=== PATIENT | male | born 1965 | race Caucasian/White ===

== ENCOUNTER 2018-05-04 14:14 | Inpatient (IN) | payer MEDICAID ==
[2018-05-04 14:56] LABS: ADD MAN DIFF? NO
[2018-05-04 15:01] LABS: BASOPHIL # 0.1 10^3/ul (0.0-0.1); BASOPHILS % 0.6 % (0.0-2.0); EOSINOPHILS # 0.2 10^3/ul (0.0-0.5); EOSINOPHILS % 1.4 % (0.0-7.0); HEMATOCRIT 41.2 % (42.0-52.0); HEMOGLOBIN 14.1 g/dl (14.0-18.0); LYMPHOCYTES # 1.8 10^3/ul (0.8-2.9); LYMPHOCYTES % 16.5 % (15.0-51.0); MEAN CORPUSCULAR HEMOGLOBIN 31.8 pg (29.0-33.0); MEAN CORPUSCULAR HGB CONC 34.2 g/dl (32.0-37.0); MEAN CORPUSCULAR VOLUME 92.8 fl (82.0-101.0); MEAN PLATELET VOLUME 8.4 fl (7.4-10.4); MONOCYTE # 1.2 10^3/ul (0.3-0.9); MONOCYTES % 10.8 % (0.0-11.0); NEUTROPHIL # 7.6 10^3/ul (1.6-7.5); NEUTROPHILS % 70.4 % (39.0-77.0); PLATELET COUNT 316 10^3/UL (140-415); RED BLOOD COUNT 4.44 10^6/ul (4.70-6.10); RED CELL DISTRIBUTION WIDTH 11.9 % (11.5-14.5)
[2018-05-04 15:01] LABS: WHITE BLOOD COUNT 10.8 10^3/ul (4.8-10.8)
[2018-05-04 15:23] LABS: ANION GAP 12 (5-13); BLOOD UREA NITROGEN 10 mg/dl (7-20); CALCIUM 9.7 mg/dl (8.4-10.2); CARBON DIOXIDE 31 mmol/L (21-31); CHLORIDE 96 mmol/L (97-110); CREATININE 0.77 mg/dl (0.61-1.24); Estimated GFR > 60 mL/min (>60); GLUCOSE 109 mg/dl (70-220); POTASSIUM 4.5 mmol/L (3.5-5.1); SODIUM 139 mmol/L (135-144)
[2018-05-04] MEDS ORDERED: ONDANSETRON 4 MG INJ IV ×2 (16:30→19:00)
[2018-05-04] MEDS ORDERED: ACETAMINOPHEN 325 MG TAB PO ×2 (16:30→19:00)
[2018-05-04] MEDS: SOD CHLORIDE 0.9% 1,000 ML IV (18:36)
[2018-05-04] MEDS: HEPARIN 1000 UNITS/ML 10 ML INJ IV (18:59)
[2018-05-04] MEDS ORDERED: NITROGLYCERIN (SL) 0.4 MG TAB SL (19:00)
[2018-05-04] MEDS ORDERED: morphine 4 MG/ML VIAL IV (19:00)
[2018-05-04] MEDS ORDERED: HYDROCODONE/APAP (5/325) TAB PO (19:00)
[2018-05-04] MEDS ORDERED: ZOLPIDEM 5 MG TAB PO (19:00)
[2018-05-04] MEDS ORDERED: NACL 0.9% 3 ML SYG IV (19:00)
[2018-05-04] MEDS ORDERED: DOCUSATE SODIUM 100 MG CAP PO (19:00)
[2018-05-04] MEDS: HEPARIN 25000 UNITS/250 ML 250 ML IV (19:01)
[2018-05-04 19:20] LABS: INR 0.92; PROTIME 12.5 Sec (11.9-14.9)
[2018-05-04 19:21] LABS: PARTIAL THROMBOPLASTIN TIME 38.5 Sec (23.0-35.0)
[2018-05-04] MEDS: METOPROLOL 25 MG TAB PO (21:55)
[2018-05-04] MEDS: ATORVASTATIN 80 MG TAB PO (21:55)
[2018-05-04] MEDS: ZOLPIDEM 5 MG TAB PO (21:57)
[2018-05-04 23:06] LABS: CREATINE KINASE 253 IU/L (23-200)
[2018-05-04 23:18] LABS: CK INDEX 3.6
[2018-05-04 23:20] LABS: CK-MB 9.06 ng/ml (0.0-2.4)
[2018-05-05 01:14] LABS: PARTIAL THROMBOPLASTIN TIME 59.3 Sec (23.0-35.0)
[2018-05-05 03:08] LABS: CREATINE KINASE 193 IU/L (23-200)
[2018-05-05 03:21] LABS: CK INDEX 3.5
[2018-05-05 03:35] LABS: CK-MB 6.82 ng/ml (0.0-2.4)
[2018-05-05 07:08] LABS: ADD MAN DIFF? NO
[2018-05-05] MEDS: SOD CHLORIDE 0.9% 1,000 ML IV ×2 (07:12→18:17)
[2018-05-05 07:19] LABS: BASOPHIL # 0.1 10^3/ul (0.0-0.1); BASOPHILS % 0.8 % (0.0-2.0); EOSINOPHILS # 0.3 10^3/ul (0.0-0.5); EOSINOPHILS % 2.7 % (0.0-7.0); LYMPHOCYTES # 2.1 10^3/ul (0.8-2.9); LYMPHOCYTES % 22.8 % (15.0-51.0); MEAN CORPUSCULAR HEMOGLOBIN 31.3 pg (29.0-33.0); MEAN CORPUSCULAR HGB CONC 34.1 g/dl (32.0-37.0); MEAN CORPUSCULAR VOLUME 91.7 fl (82.0-101.0); MEAN PLATELET VOLUME 8.6 fl (7.4-10.4); MONOCYTES % 10.3 % (0.0-11.0); NEUTROPHIL # 5.8 10^3/ul (1.6-7.5); NEUTROPHILS % 62.9 % (39.0-77.0); PLATELET COUNT 283 10^3/UL (140-415); RED BLOOD COUNT 4.47 10^6/ul (4.70-6.10); RED CELL DISTRIBUTION WIDTH 11.9 % (11.5-14.5)
[2018-05-05 07:19] LABS: WHITE BLOOD COUNT 9.2 10^3/ul (4.8-10.8)
[2018-05-05 07:33] LABS: PARTIAL THROMBOPLASTIN TIME 49.4 Sec (23.0-35.0)
[2018-05-05 07:42] LABS: ANION GAP 10 (5-13); BLOOD UREA NITROGEN 11 mg/dl (7-20); CALCIUM 9.3 mg/dl (8.4-10.2); CARBON DIOXIDE 28 mmol/L (21-31); CHLORIDE 104 mmol/L (97-110); CHOL/HDL RATIO 4.3 RATIO; CHOLESTEROL 188 mg/dl (100-200); CREATININE 0.73 mg/dl (0.61-1.24); Estimated GFR > 60 mL/min (>60); GLUCOSE 107 mg/dl (70-220); HDL CHOLESTEROL 43 mg/dl (28-71); LDL CHOLESTEROL,CALCULATED 103 mg/dl; MAGNESIUM 2.2 mg/dl (1.7-2.5); PHOSPHORUS 4.6 mg/dl (2.5-4.9); POTASSIUM 4.2 mmol/L (3.5-5.1); SODIUM 142 mmol/L (135-144); TRIGLYCERIDES 208 mg/dl (0-149)
[2018-05-05 07:47] LABS: HEMOGLOBIN A1C 5.5 % (0-5.9)
[2018-05-05] MEDS: HEPARIN 25000 UNITS/250 ML 250 ML IV ×3 (07:56→15:33)
[2018-05-05] MEDS: METOPROLOL 25 MG TAB PO ×2 (08:51→20:50)
[2018-05-05 14:00] LABS: PARTIAL THROMBOPLASTIN TIME 45.5 Sec (23.0-35.0)
[2018-05-05 14:39] LABS: CREATINE KINASE 138 IU/L (23-200)
[2018-05-05 14:46] LABS: CK INDEX 3.1
[2018-05-05 14:51] LABS: CK-MB 4.24 ng/ml (0.0-2.4)
[2018-05-05] MEDS: HEPARIN 1000 UNITS/ML 10 ML INJ IV (14:55)
[2018-05-05 19:34] LABS: PARTIAL THROMBOPLASTIN TIME 122.5 Sec (23.0-35.0)
[2018-05-05] MEDS: ATORVASTATIN 80 MG TAB PO (20:50)
[2018-05-05] MEDS: ZOLPIDEM 5 MG TAB PO (22:29)
[2018-05-06 04:15] LABS: ADD MAN DIFF? NO
[2018-05-06 04:22] LABS: WHITE BLOOD COUNT 7.8 10^3/ul (4.8-10.8)
[2018-05-06 04:22] LABS: BASOPHIL # 0.1 10^3/ul (0.0-0.1); BASOPHILS % 0.6 % (0.0-2.0); EOSINOPHILS # 0.3 10^3/ul (0.0-0.5); EOSINOPHILS % 3.2 % (0.0-7.0); HEMATOCRIT 38.6 % (42.0-52.0); HEMOGLOBIN 13.3 g/dl (14.0-18.0); LYMPHOCYTES # 1.9 10^3/ul (0.8-2.9); MEAN CORPUSCULAR HEMOGLOBIN 31.7 pg (29.0-33.0); MEAN CORPUSCULAR HGB CONC 34.5 g/dl (32.0-37.0); MEAN CORPUSCULAR VOLUME 91.9 fl (82.0-101.0); MEAN PLATELET VOLUME 8.7 fl (7.4-10.4); MONOCYTE # 0.8 10^3/ul (0.3-0.9); MONOCYTES % 10.3 % (0.0-11.0); NEUTROPHIL # 4.7 10^3/ul (1.6-7.5); NEUTROPHILS % 60.5 % (39.0-77.0); PLATELET COUNT 269 10^3/UL (140-415); RED CELL DISTRIBUTION WIDTH 11.9 % (11.5-14.5)
[2018-05-06 04:46] LABS: ANION GAP 6 (5-13); BLOOD UREA NITROGEN 11 mg/dl (7-20); CALCIUM 9.2 mg/dl (8.4-10.2); CARBON DIOXIDE 26 mmol/L (21-31); CHLORIDE 109 mmol/L (97-110); CHOLESTEROL 164 mg/dl (100-200); CREATINE KINASE 86 IU/L (23-200); CREATININE 0.72 mg/dl (0.61-1.24); Estimated GFR > 60 mL/min (>60); GLUCOSE 115 mg/dl (70-220); POTASSIUM 3.7 mmol/L (3.5-5.1); SODIUM 141 mmol/L (135-144); TRIGLYCERIDES 210 mg/dl (0-149)
[2018-05-06 04:50] LABS: PARTIAL THROMBOPLASTIN TIME 52.6 Sec (23.0-35.0)
[2018-05-06 04:52] LABS: INR 0.88; PT RATIO 0.9
[2018-05-06 04:58] LABS: CK INDEX 1.6
[2018-05-06] MEDS: SOD CHLORIDE 0.9% 1,000 ML IV ×2 (06:14→14:22)
[2018-05-06] MEDS: DIAZEPAM 5 MG TAB PO (08:00)
[2018-05-06] MEDS: DIPHENHYDRAMINE 50 MG CAP PO (08:00)
[2018-05-06] MEDS: ASPIRIN 325 MG TAB PO (09:18)
[2018-05-06] MEDS: METOPROLOL 25 MG TAB PO ×2 (09:18→20:13)
[2018-05-06] MEDS ORDERED: NITROGLYCERIN (IC) 100 MCG/ML INJ (12:00)
[2018-05-06] MEDS ORDERED: VERAPAMIL 5 MG INJ (12:00)
[2018-05-06] MEDS ORDERED: LIDOCAINE 1% (MDV) 20 ML INJ (12:00)
[2018-05-06] MEDS ORDERED: HEPARIN 1000 UNITS/ML 10 ML INJ (12:00)
[2018-05-06] MEDS ORDERED: MIDAZOLAM 1 MG/ML 2 ML INJ (12:00)
[2018-05-06] MEDS ORDERED: FENTAnyl 50 MCG/ML VIAL (12:01)
[2018-05-06] MEDS ORDERED: BIVALIRUDIN 250MG /NS 50 ML 50 ML IVPB (13:07)
[2018-05-06] MEDS ORDERED: ASPIRIN 325 MG TAB (13:21)
[2018-05-06] MEDS ORDERED: CLOPIDOGREL 300 MG TAB (13:21)
[2018-05-06] MEDS ORDERED: AL HYDROX/MG HYDROX/SIMETH 30 ML CUP PO (14:00)
[2018-05-06] MEDS ORDERED: OXYCODONE/ACETAMINOPHEN (5/325) TAB PO (14:00)
[2018-05-06] MEDS ORDERED: ACETAMINOPHEN 325 MG TAB PO (14:00)
[2018-05-06] MEDS ORDERED: ONDANSETRON 4 MG INJ IV (14:00)
[2018-05-06] MEDS ORDERED: morphine 4 MG/ML VIAL IV (14:00)
[2018-05-06] MEDS: ATORVASTATIN 80 MG TAB PO (20:13)
[2018-05-06] MEDS: ZOLPIDEM 5 MG TAB PO (21:10)
[2018-05-07] MEDS: ZOLPIDEM 5 MG TAB PO (01:15)
[2018-05-07 06:08] LABS: WHITE BLOOD COUNT 9.9 10^3/ul (4.8-10.8)
[2018-05-07 06:08] LABS: ADD MAN DIFF? NO; BASOPHIL # 0.1 10^3/ul (0.0-0.1); BASOPHILS % 0.5 % (0.0-2.0); EOSINOPHILS # 0.2 10^3/ul (0.0-0.5); EOSINOPHILS % 2.2 % (0.0-7.0); HEMATOCRIT 39.2 % (42.0-52.0); HEMOGLOBIN 13.7 g/dl (14.0-18.0); LYMPHOCYTES # 1.4 10^3/ul (0.8-2.9); LYMPHOCYTES % 14.3 % (15.0-51.0); MEAN CORPUSCULAR HGB CONC 34.9 g/dl (32.0-37.0); MEAN CORPUSCULAR VOLUME 91.6 fl (82.0-101.0); MEAN PLATELET VOLUME 8.6 fl (7.4-10.4); MONOCYTE # 0.9 10^3/ul (0.3-0.9); MONOCYTES % 8.8 % (0.0-11.0); NEUTROPHIL # 7.3 10^3/ul (1.6-7.5); NEUTROPHILS % 73.7 % (39.0-77.0); PLATELET COUNT 287 10^3/UL (140-415); RED BLOOD COUNT 4.28 10^6/ul (4.70-6.10); RED CELL DISTRIBUTION WIDTH 11.7 % (11.5-14.5)
[2018-05-07 06:50] LABS: ANION GAP 7 (5-13); BLOOD UREA NITROGEN 9 mg/dl (7-20); CALCIUM 9.4 mg/dl (8.4-10.2); CARBON DIOXIDE 25 mmol/L (21-31); CHLORIDE 107 mmol/L (97-110); CREATINE KINASE 84 IU/L (23-200); Estimated GFR > 60 mL/min (>60); GLUCOSE 104 mg/dl (70-220); POTASSIUM 3.6 mmol/L (3.5-5.1); SODIUM 139 mmol/L (135-144)
[2018-05-07 07:05] LABS: CK-MB 2.53 ng/ml (0.0-2.4)
[2018-05-07] MEDS: CLOPIDOGREL 75 MG TAB PO (08:25)
[2018-05-07] MEDS: METOPROLOL 25 MG TAB PO (08:25)
[2018-05-07] MEDS: ASPIRIN (EC) 81 MG TAB PO (08:26)
== END 2018-05-07 17:55 | disposition home or self-care (01) | DRG 247 ==
LOC: TEL 05-06 13:54 → E/R 14:14 → TEL 16:23
PROC: 027034Z Dilation of Coronary Artery, One Artery with Drug-eluting Intraluminal Device, Percutaneous Approach (ICD-10-PCS; principal; 2018-05-06 11:00)
PROC: 02703ZZ Dilation of Coronary Artery, One Artery, Percutaneous Approach (ICD-10-PCS; 2018-05-06 11:00)
PROC: 4A023N7 Measurement of Cardiac Sampling and Pressure, Left Heart, Percutaneous Approach (ICD-10-PCS; 2018-05-06 11:00)
PROC: B211YZZ Fluoroscopy of Multiple Coronary Arteries using Other Contrast (ICD-10-PCS; 2018-05-06 11:00)
DX: I21.4 Non-ST elevation (NSTEMI) myocardial infarction (principal); I42.9 Cardiomyopathy, unspecified; I25.10 Atherosclerotic heart disease of native coronary artery without angina pectoris; E66.01 Morbid (severe) obesity due to excess calories; I10 Essential (primary) hypertension; E78.5 Hyperlipidemia, unspecified; Z68.34 Body mass index [BMI] 34.0-34.9, adult
CPT/HCPCS: 36415; 71045; 80048; 80061; 82465; 82550; 82553; 83036; 83735; 84100; 84478; 84484; 85025; 85610; 85730; 93005; 93306; 93458; 99285-25